=== PATIENT | male | born 1955 | race Caucasian/White ===

== ENCOUNTER 2024-12-09 09:01 | Day surgery (SDC) | payer OTHER ==
[~2024-12-09] VITALS: Ht 177.8 cm; Wt 89.4 kg
[~2024-12-09 09:01] MED LIST: ATOR20 PO; BUDE6HFA INH; IRBESARTAN-HCT1 EAC1 PO; Lactated Ringer's 1,000 ML IV ONE; Omeprazole20 M1 PO; PANT40 PO; VALSARTAN-HCTZ1 EAC1; propofoL 50 ML IV ONE
[2024-12-09] MEDS ORDERED: Lactated Ringer's 1,000 ML IV ONE (10:35)
[2024-12-09 12:07] VITALS: BP 127/88
== END 2024-12-09 11:58 | disposition home or self-care (01) ==
LOC: ORSCSDS 09:01
PROVIDERS: Specialist
PROC: 0DB78ZX Excision of Stomach, Pylorus, Via Natural or Artificial Opening Endoscopic, Diagnostic (ICD-10-PCS; principal; 2024-12-09 10:30)
PROC: 0DBN8ZX Excision of Sigmoid Colon, Via Natural or Artificial Opening Endoscopic, Diagnostic (ICD-10-PCS; principal; 2024-12-09 10:30)
PROC: 0DB58ZX Excision of Esophagus, Via Natural or Artificial Opening Endoscopic, Diagnostic (ICD-10-PCS; principal; 2024-12-09 10:30)
PROC: 0DB98ZX Excision of Duodenum, Via Natural or Artificial Opening Endoscopic, Diagnostic (ICD-10-PCS; principal; 2024-12-09 10:30)
DX: K20.0 Eosinophilic esophagitis (principal); Z12.11 Encounter for screening for malignant neoplasm of colon; Z86.0100 Personal history of colon polyps, unspecified; R13.10 Dysphagia, unspecified; K29.70 Gastritis, unspecified, without bleeding; K63.5 Polyp of colon; L53.9 Erythematous condition, unspecified; K64.8 Other hemorrhoids; I10 Essential (primary) hypertension; E78.5 Hyperlipidemia, unspecified; Z79.899 Other long term (current) drug therapy
CPT/HCPCS: 88305; 88342; J2704; J7120

== ENCOUNTER 2025-06-03 07:39 | Day surgery (SDC) | payer OTHER ==
[~2025-06-03 07:39] MED LIST changes: -Lactated Ringer's 1,000 ML IV ONE; -propofoL 50 ML IV ONE
== END 2025-06-03 23:00 | disposition home or self-care (01) ==
LOC: CT 07:39
DX: I47.20 Ventricular tachycardia, unspecified (principal); R94.39 Abnormal result of other cardiovascular function study; I10 Essential (primary) hypertension; E78.5 Hyperlipidemia, unspecified; Z88.0 Allergy status to penicillin; Z79.899 Other long term (current) drug therapy
CPT/HCPCS: 75571

== ENCOUNTER 2025-07-13 06:31 | Day surgery (SDC) | payer OTHER ==
[2025-07-13] VITALS (10 sets, daily range): BP systolic 111–136; BP diastolic 68–84
[~2025-07-13] VITALS: Ht 177.8 cm; Wt 90.7 kg
[~2025-07-13 06:31] MED LIST changes: +Aspir 8181 MG PO; +IRBE150 PO; +METO25ER PO
[2025-07-13] MEDS ORDERED: NS 250 ML IV ONE (07:09)
[2025-07-13] MEDS ORDERED: Verapamil HCL 2.5 MG/ML 2ML Injection ONE (07:09)
[2025-07-13] MEDS ORDERED: Heparin Sodium 1000 Units/ML 10ML MDV ONE (07:09)
[2025-07-13] MEDS ORDERED: NS 1,000 ML IV ONE ×2 (07:09→07:14)
[2025-07-13] MEDS ORDERED: Nitroglycerin 2 MG/20 ML BTL ONE (07:10)
[2025-07-13] MEDS ORDERED: FentaNYL Citrate 50 MCG/ML 2 ML Injection ONE (07:14)
[2025-07-13] MEDS ORDERED: Midazolam HCl 1MG / ML 2ML Vial ONE (07:14)
--- NOTE | 2025-07-13 08:35 | NUR ---
ASSUMED CARE OF PT POST PROCEDURE. PT ALERT AND ORIENTED, COOPERATIVE; DENIES CP POST PROCEDURE. MONITOR SB/SR 50-60'S, B/P 125/68, SPO2 95 % RA. R RADIAL SITE NO SWELLING/HEMATOMA, TR BAND IN PLACE; RUE POSITIVE PLEUTH POST TR BAND PLACEMENT. PT'S FAMILY AT BEDSIDE, ATTENTIVE.
--- NOTE | 2025-07-13 10:10 | NUR ---
TR BAND FULLY DEFLATED, NO SWELLING/HEMATOMA.
--- NOTE | 2025-07-13 10:35 | NUR ---
PT AMB TO BATHROOM WITHOUT ISSUE, SITE UNCHANGED. PT DRESSED SELF WITHOUT PROBLEM. TR BAND REMOVED, CLOTH DOT AND WRIST IMMOBILIZER PLACED; IV REMOVED-CANNULA INTACT.
--- NOTE | 2025-07-13 10:47 | NUR ---
PT AND RECEIVED DISCHARGE INSTRUCTIONS, MED LIST AND AFTER CARE INSTRUCTIONS; VERBALIZED GOOD UNDERSTANDING. PT LEFT FACILITY VIA W/C, CONDITION STABLE.
== END 2025-07-13 10:47 | disposition home or self-care (01) ==
LOC: MHTC 06:31
DX: I25.10 Atherosclerotic heart disease of native coronary artery without angina pectoris (principal); I11.0 Hypertensive heart disease with heart failure; I50.30 Unspecified diastolic (congestive) heart failure; J45.909 Unspecified asthma, uncomplicated; K21.9 Gastro-esophageal reflux disease without esophagitis; E78.5 Hyperlipidemia, unspecified; Z88.0 Allergy status to penicillin; Z79.82 Long term (current) use of aspirin; Z79.899 Other long term (current) drug therapy
CPT/HCPCS: 76937; 93458; 99152; 99153; C1769; C1887; C1894; J1644; J2250; J3010; J7030; J7050; Q9967